=== PATIENT | male | born 1960 | race Caucasian/White ===

== ENCOUNTER 2020-02-12 11:36 | Outpatient (CLI) | payer BC, SELFPAY ==
--- NOTE | ~2020-02-12 | XR_ITS ---
XR shoulder LT min 2V DATE: 02/12/2020 11:55 INDICATION: Left shoulder pain TECHNIQUE: 4 views COMPARISON: None FINDINGS: There is severe osteoarthritis at the left glenohumeral joint, with associated prominent hy pertrophic degenerative spurring of the left humeral head. There is degenerative spurring at the acro mioclavicular joint. No fracture, dislocation, periosteal reaction or bone destruction is detected. IMPRESSION: Severe osteoarthritis at the left glenohumeral joint Degenerative spurring of the left acromioclavicular joint Reviewed, dictated and finalized at location B. ENGINEER
== END 2020-02-12 11:37 | disposition home or self-care (01) ==
PROVIDERS: PCP Internal Medicine; Visit Provider Nurse Practitioner
DX: M19.012 Primary osteoarthritis, left shoulder (principal)
CPT/HCPCS: 73030

== ENCOUNTER 2020-03-21 14:12 | Outpatient (CLI) | payer BC, SELFPAY ==
--- NOTE | 2020-03-21 | ECG_ITS ---
Measurements Intervals [place] Rate: 70 P: 56 ND: 178 QRS: 61 QRSD: 97 T: 59 QT: 416 QTc: 451 Interpretive Statements SINUS RHYTHM BASELINE ARTIFACT- V2 NORMAL ECG Electronically Signed On 03-21-2020 15:05:24 PROFILING MACHINE SETUP OPERATOR by Jose L Pinto D.O.
[2020-03-21 14:57] LABS: Hematocrit 42.8 % (42.0-52.0); Hemoglobin 14.7 g/dL (14.0-18.0)
[2020-03-21 15:03] LABS: Urine Cotinine NEGATIVE
[2020-03-21 15:06] LABS: Albumin Level 4.2 g/dL (3.5-5.1); Estimated Glomerular Filt Rate > 60; Glucose 98 mg/dL (75-110)
[2020-03-21 16:50] LABS: Hemoglobin A1C 5.1 % (<5.7)
== END 2020-03-21 14:13 | disposition home or self-care (01) ==
PROVIDERS: PCP Internal Medicine; Visit Provider Orthopaedic Surgery
DX: Z01.818 Encounter for other preprocedural examination (principal); E11.9 Type 2 diabetes mellitus without complications
CPT/HCPCS: 80307; 82040; 82565; 82947; 83036; 85014; 85018; 93005

== ENCOUNTER 2020-04-22 07:44 | Outpatient (CLI) | payer BC, SELFPAY ==
[2020-04-22 08:57] LABS: Basophils Percent Auto 0.6 % (0.2-1.2); Eosinophils Absolute Auto 0.1 K/mm3 (0-0.3); Eosinophils Percent Auto 2.3 % (0-4.4); Hematocrit 44.4 % (42.0-52.0); Hemoglobin 14.8 g/dL (14.0-18.0); Immature Granulocyte Absolute 0.01 K/mm3 (0.00-0.031); Immature Granulocyte Percent A 0.2 % (0-0.5); Lymphocytes Absolute Auto 1.46 K/mm3 (0.9-3.2); Lymphocytes Percent Auto 31.1 % (18.3-44.2); Mean Corpuscular HGB Conc 33.3 g/dl (32-36); Mean Corpuscular Hemoglobin 30.6 pg (26-34); Mean Corpuscular Volume 91.9 fl (80-100); Mean Platelet Volume 8.8 fl (7.4-10.4); Monocytes Absolute Auto 0.4 K/mm3 (0.1-0.6); Monocytes Percent Auto 7.7 % (2.6-8.5); Neutrophils Absolute Auto 2.7 K/mm3 (1.3-6.7); Neutrophils Percent Auto 58.1 % (45.5-73.1); Platelet Count Result 257 k/mm3 (150-375); Red Blood Count 4.83 M/mm3 (4.6-6.20); Red Cell Distribution Width 12.7 % (11.5-14.5); White Blood Count 4.7 K/mm3 (4.5-10.0)
== END 2020-04-22 07:45 | disposition home or self-care (01) ==
LOC: ANHSURGERY 07:48
PROVIDERS: PCP Internal Medicine; Visit Provider Orthopaedic Surgery
DX: M16.12 Unilateral primary osteoarthritis, left hip (principal); Z01.818 Encounter for other preprocedural examination
CPT/HCPCS: 36415; 85025; 87081

== ENCOUNTER → 2020-05-09 02:42 | Outpatient (CLI) | payer BC, SELFPAY ==
[2020-05-09 21:05] LABS: SARS-CoV-2 RNA PCR Negative
== END ==
PROVIDERS: PCP Internal Medicine; Visit Provider Orthopaedic Surgery
DX: Z01.812 Encounter for preprocedural laboratory examination (principal); Z20.822 Contact with and (suspected) exposure to COVID-19
CPT/HCPCS: C9803; U0003; U0005

== ENCOUNTER 2020-05-12 00:28 | Day surgery (SDC) | payer BC, SELFPAY ==
[2020-04-22 07:54] VITALS: BMI 28.9
[2020-04-22 08:32] VITALS: BP 134/86; PULSE 68; RESP 16; TEMP 36.3; O2SAT 100
--- NOTE | 2020-05-11 09:53 | WPDANESEPPF ---
Anes - Initial Pre Proc Eval Procedure: Operation Date: 05/12/20 07:30 Proposed Procedures p Left Total Hip Arthroplasty - Shiraz England MD Date/Time: 05/11/20 09:53 Surgeon: Shiraz England MD Pre Op Diagnosis: Primary OA Left Hip Patient Data Age: 59 Gender: M Height: 1.91 m Weight: 104.9 kg Last Vital Signs Temp 36.3 C L 04/22/20 08:32 Pulse 68 04/22/20 08:32 Resp 16 04/22/20 08:32 BP 134/86 04/22/20 08:32 Pulse Ox 100 04/22/20 08:32 Allergies Allergy/AdvReac Type Severity Reaction Status Date / Time morphine Allergy Unknown Nausea Verified 04/22/20 08:01 Home Medications Medication Instructions Recorded Confirmed Type glucos sul [id number]-Mn 1 cap PO TID 04/22/20 04/22/20 History [Glucosamine Chondroitin] meloxicam 15 mg PO PRN PRN 04/22/20 04/22/20 History Patient hx anesthesia problems: none Family hx anesthesia problems: none PMFSH Past Medical History Medical History (Updated 05/11/20 @ 09:54 by Luis Etienne MD) Chicken pox Dizziness Hip pain History of measles, mumps, or rubella Left shoulder pain Osteoarthritis Overweight (BMI 25.0-29.9) Pain of left thumb Tingling of both upper extremities Surgical History Surgical History H/O toe surgery 03/2017 History of knee surgery (~2004) patellar tendon rupture Hx of LASIK (~1999) Family History Family History Father Hypertension Osteoarthritis Mother Heart disease Hypertension FH: ovarian cancer FH: uterine cancer Cardiomegaly Sibling Cirrhosis of liver Perforation of colon Social History Social History Smoking status: Never smoker Additional smoking assessment comments: DENIES ANY FORM OF TOBACCO USE Alcohol intake: current Drinks per week: 6 Substance use: never Living arrangements: with family Spiritual care concerns: No Anes - Eval Final PreProcedure Day of Procedure 05/11/20 09:53 Patient weight: overweight Heart: regular rate and rhythm Lungs: clear to auscultation and normal air movement Airway: Mallampati scale class II Neurological: alert and oriented Last oral intake: >/= 8 hours ASA classification: II Emergent: no Anesthetic plan: proceed Anesthesia type and monitoring: general LMA and ETT Informed Consent: The patient's anesthetic plan and its attendant risks and benefits were discussed with the patient/family/POA. Questions were solicited and answers provided to the satisfaction of the patient/family/POA.
[2020-05-12] VITALS (13 sets, daily range): BP systolic 110–137; BP diastolic 45–83; PULSE 72–103; RESP 10–20; TEMP 36.1–37.6; O2SAT 96–100
--- NOTE | ~2020-05-12 | XR_ITS ---
EXAMINATION: XR hip LT min 2V EXAM DATE: 05/12/2020 10:50 INDICATION: Left hip arthroplasty. TECHNIQUE: Portable frontal, crosstable lateral projections left hip obtained immediately following arthroplasty. Procedure performed by Shiraz England MD. FINDINGS: Patient is status post left hip arthroplasty. The orthopedic hardware is in expected posi tion. There is small amount of subcutaneous gas, some soft tissue swelling. Correlate with proced ure note. IMPRESSION: Status post left hip arthroplasty. Reviewed, dictated and finalized at location A.
[2020-05-12] MEDS: ACETAMINOPHEN 500 MG TABLET 1000 MG PO (07:01)
[2020-05-12] MEDS: LACTATED RINGERS 1,000 ML 30 ML IV CONT ×2 (07:05→10:31)
[2020-05-12] MEDS: TRANEXAMIC ACID 1,000MG/ISO100 1,000 MG/100 ML BAG 200 MG IVPB (07:18)
--- NOTE | 2020-05-12 07:23 | WPDHPUPDATE1 ---
History and Physical Update Update Date/Time: 05/12/20 07:23 History and Physical has been reviewed, including an updated exam of the patient. There are NO changes in the patient's condition. Risks, benefits, and alternatives have been discussed and questions answered. Patient agrees to proceed with procedure.
[2020-05-12] MEDS: ceFAZolin 2 GM/D5W 50 ML 2 GM/50 ML BAG IVPB (07:29)
--- NOTE | 2020-05-12 10:51 | PM.PROC ---
Procedure Note - Detailed Date of procedure: 05/12/20 Pre-op diagnosis: Primary OA Left Hip Post-op diagnosis: same Procedure performed: Total hip arthroplasty. Implants: The Accolade II hip stem, 127 degree size 7 , was utilized with excellent press-fit. The 54 mm ADM acetabular component was impacted with excellent press-fit stability. The -2.7 , 28 mm Biolox ceramic femoral head was utilized. [facility] Surgeon: Shiraz England MD Lining Finisher: Desi Salgado PA-C Estimated blood loss (mL): 200 Drains: No Complications: None Condition: stable Findings: Physician optical assistant, Desi Salgado PA-C, required for surgery; including patient positioning, draping, tissue retraction, maintaining instrument position, wound closure, and dressing placement. OPERATIVE DETAILS: The patient was given preoperative antibiotics. A general anesthetic was administered. The patient was carefully placed in the lateral decubitus position on the PEG board. The shoulders and hips were carefully positioned for component and leg length positioning reference. The hip was prepped and draped in the usual sterile fashion. A longitudinal incision was created over the posterior aspect of the greater trochanter. Careful dissection was brought down through the deep fascia with electrocautery. A minimally invasive optimized posterior approach to the hip was performed. The short external rotators and capsule were taken down in an L-shaped capsulotomy. The tissue was tagged for later repair using number 2 high strength suture. The femoral neck was measured and taken in situ. The femoral head was removed. The acetabulum was carefully exposed. The inferior capsule was released. The labrum was resected. The acetabulum was sequentially reamed to one over the intended cup size. The cup was impacted into position with excellent press-fit. Typical anatomic landmarks, including the bony contact points as well as the inferior transverse acetabular ligament were used to confirm cup positioning with preoperative templating. Attention was turned to the femur, which was carefully exposed. The hip was reamed and then broached sequentially. Excellent press-fit was obtained with the broach. The hip was trialed. Measurements were utilized, including the lesser trochanter as well as the center of the femoral head and the tip of the trochanter, and excellent assessment of the offset and leg lengths were confirmed. The real component was impacted into position. Trialing confirmed appropriate leg length and offset with soft tissue balancing as well apparent feel of the leg, both at the knee and the heel. Soft tissues were assessed using the the iliotibial band. Reduction of the posterior capsule and external rotators were also used as a secondary assessment. The hip was copiously irrigated with pulsatile lavage antibiotic solution periodically throughout the procedure. The real components were then assembled and reduced. The hip was stable throughout typical maneuvers, including extension, external rotation to 70 degrees, the position of sleep as well as flexion to 90 degrees with internal rotation past 45 degrees. The shake test confirmed stability without impingement. Osteophytes were removed as necessary. The short external rotators and capsule were repaired back to the posterior trochanter through drill holes. The deep fascia was repaired with running number 2 Quill suture, followed by 0 Stratafix suture and 2-0 Stratafix suture in the dermis. Steri-Strips were placed on the skin, followed by a sterile silver occlusive dressing. There were no complications. Meticulous hemostasis was maintained with the AquaMantys device. The patient was brought to the recovery room in stable condition. There were no complications.
[2020-05-12] MEDS: fentaNYL CITRATE INJ (*CRX) 100 MCG/2 ML VIAL 25 MCG IV PUSH ×2 (11:05→11:09)
--- NOTE | 2020-05-12 11:44 | ADMGEN ---
This patient, Albert Bradford, was admitted to Medical Room 248-. Patient/family oriented to hospital policies and general routines including ID bracelet, bed and alarms, visiting hours, pain management, procedures, bathroom and other care routines, personal items, smoking policy, room service/diet, and visiting hours. Information on how to activate the Rapid Response Team has been discussed. Patient/Family are encouraged to report perceived risks to care and to ask questions if they do not understand what they are told or what they should do.
[2020-05-12] MEDS: SODIUM CHLORIDE 0.9% IV 1,000 ML 125 ML IV CONT ×2 (11:57→21:40)
[2020-05-12] MEDS: oxyCODONE HCL (*CRX) 5 MG TAB IR PO (12:49)
[2020-05-12] MEDS: ONDANSETRON INJ 4 MG/2 ML VIAL IV PUSH ×2 (12:49→16:52)
--- NOTE | 2020-05-12 14:26 | PCOTNOTE ---
Attempted OT evaluation, patient reports feeling nauseous at this time and would like to rest. will follow and attempt in AM. RN notified.
[2020-05-12] MEDS: MELOXICAM 7.5 MG TABLET 15 MG PO (14:27)
[2020-05-12] MEDS: ASPIRIN 81 MG ENTERIC TABLET PO (18:40)
[2020-05-12] MEDS: DOCUSATE SODIUM 100 MG CAPSULE PO (18:40)
--- NOTE | 2020-05-12 23:12 | PC.NURSE ---
Addendum entered by Michael Cochran RN 05/13/20 05:21: 4x4 gauze had small amount of saturation overnight, when rechecking at this time saturation had doubled. Gauze removed, surgical glue/steristrips still appear to be intact. Incision not actively bleeding/oozing at this time, coverlet applied. Original Note: Pt found to have blood saturated mepilex that had also saturated through pt gown as well as on bed. Mepilex was removed and incision was not actively bleeding or oozing, no bruising/hematoma noted. Blood was gently blotted at incision until dry and 4x4 gauze taped over incision. Will monitor closely for further signs of bleeding and notify surgeon if bleeding continues.
[2020-05-13] VITALS (7 sets, daily range): BP systolic 111–127; BP diastolic 57–81; PULSE 62–90; RESP 14–16; TEMP 35.7–37.7; O2SAT 94–100
[2020-05-13] MEDS: oxyCODONE HCL (*CRX) 5 MG TAB IR PO ×2 (07:11→11:15)
[2020-05-13] MEDS: MELOXICAM 7.5 MG TABLET 15 MG PO (08:47)
[2020-05-13] MEDS: DOCUSATE SODIUM 100 MG CAPSULE PO (08:47)
[2020-05-13] MEDS: ASPIRIN 81 MG ENTERIC TABLET PO (08:47)
--- NOTE | 2020-05-13 09:46 | WPDANESPN ---
Anes - Prog Note Post-Op Date/Time: 05/13/20 09:46 Cardiovascular status: normal Respiratory status: normal Airway patency: baseline Mental status: baseline Post-Op hydration status: normal Vital Signs: Last Vital Signs Temp 36.4 C L 05/13/20 08:07 Pulse 62 05/13/20 08:07 Resp 14 05/13/20 08:07 BP 111/76 05/13/20 08:07 Pulse Ox 99 05/13/20 08:18 Pain Score (VAS): 5 I/O: Intake & Output 05/12/20 05/13/20 05/13/20 23:59 07:59 15:59 Intake Total 2090 1400 Output Total 3075 Balance 2090 -1675 Post-procedural complaints: none Patient Feedback: Patient satisfied with anesthetic care.
--- NOTE | 2020-05-13 14:32 | P.DS_ITS ---
DS: Admitting Diagnosis Admitting Diagnosis Admitting Diagnosis: OA Left hip DS: Discharge Diagnosis Discharge Diagnosis (1) Status post total hip replacement, left: Code(s): Z96.642 - Presence of left artificial hip joint Status: Acute Assessment and Plan: POD#1 Left Total hip arthroplasty. Patient progressing well. Ambulating with walker. Pain controlled. Has had initial PT/OT. Reviewed post operative expectations and exercises. Reviewed wound care postoperatively. Patient shows good understanding. Patient did have some bloody discharge from incision last night that saturated through the dressing. Dressing changed at 5 am. Only small increase in blood since. Dressing removed, cleaned with Betadine, steri strips reapplied, dressing reapplied. No drainage at the time of discharge. DS: Summary Hospital Course Reason for hospitalization: Total hip arthroplasty Hospital Course: Patient tolerated procedure well. Has had initial PT/OT. Patient did have bleeding from incision site. Dressing removed, cleaned with Betadine, steri strips reapplied, dressing reapplied. No drainage at the time of discharge. Status at Discharge Functional status at discharge: uses cane/walker Overall status at discharge: patient is progressing back to baseline Time Spent with Patient Time attestation: Total time spent providing and/or coordinating discharge services: Exam Narrative: Exam Narrative: Thin, tall Male. Resting comfortably in chair. Wearing compression socks bilaterally. Dressing dry and intact with no drainage. Moderate swelling. No ecchymosis. No erythema. No hematoma. Range of motion limited due to pain. Calf nontender. Thigh nontender. Neurologic status intact. No varicosities. Distal pulses palpable. Discharge Plan Discharge Patient Disposition: Home, Self-Care Discharge Instructions: See instruction sheet Patient Instructions: Precautions after Total Joint Replacement Surgery (GEN), Total Hip Replacement (GEN) Follow-up/Referrals: Desi Salgado PA [Physician Skilled Nursing Facility Counselor] - Discharge Medications: New aspirin 81 mg tablet,delayed release (DR/EC) 81 mg PO BID 14 Days Qty: 28 RF: 0 oxycodone-acetaminophen 5-325 mg tablet 1 - 2 tablet PO Q4-6H MDD 6 PRN (Reason: pain) Qty: 30 RF: 0 Continued meloxicam 15 mg tablet 15 mg PO DAILY RF: 0 Glucosamine Chondroitin 550-30-1 mg Capsule 1 cap PO TID RF: 0
--- NOTE | 2020-05-13 15:12 | PC.NURSE ---
On 05/13/20, the student, [ Missy Montesinos], provided care and completed [facility] documentation on this patient. I have reviewed the student's documentation and agree with the findings.
== END 2020-05-13 15:46 | disposition home or self-care (01) ==
LOC: ANHSURGERY 06:06 → ANH2MED 11:38
PROVIDERS: PCP Internal Medicine; Visit Provider Orthopaedic Surgery
PROC: (CPT 27130; principal; 2020-05-12 07:30)
DX: M16.12 Unilateral primary osteoarthritis, left hip (principal)
CPT/HCPCS: 27130; 36415; 73502; 86850; 86900; 86901; 97110; 97116; 97161; 97165; 97530; A9270; C1776; J0131; J0171; J0330; J0690; J1100; J1170; J1885; J2250; J2405; J2704; J2710; J2795; J3010; J7030; J7120

== ENCOUNTER 2020-10-05 07:20 | Outpatient (CLI) | payer BC, SELFPAY ==
--- NOTE | ~2020-10-05 | CT_ITS ---
EXAMINATION: CT shoulder LT wo con DATE: 10/05/2020 08:12 INDICATION: Left shoulder primary osteoarthritis. TECHNIQUE: Computed tomography (CT) of the left shoulder was performed without intravenous contrast. Automated exposure control and iterative reconstruction technique were employed. The dose-length prod uct was 531.71 mGy-cm. COMPARISON: Left shoulder radiographs 09/26/2020 FINDINGS: Bone alignment is normal. No fracture. There is severe osteoarthritis of glenohumeral joint including volume loss of the glenoid. There is severe osteoarthritis of the acromioclavicular joint. There is no asymmetric fatty atrophy of the rotator cuff muscle bellies. IMPRESSION: 1. Polyarticular osteoarthritis. Reviewed, dictated and finalized at location A.
== END 2020-10-05 07:21 | disposition home or self-care (01) ==
PROVIDERS: PCP Internal Medicine; Visit Provider Orthopaedic Surgery
DX: M19.012 Primary osteoarthritis, left shoulder (principal)
CPT/HCPCS: 73200

== ENCOUNTER 2020-12-01 11:52 | Outpatient (CLI) | payer BC, SELFPAY ==
[2020-12-01 13:03] LABS: Basophils Percent Auto 0.5 % (0.2-1.2); Eosinophils Absolute Auto 0.1 K/mm3 (0-0.3); Eosinophils Percent Auto 2.2 % (0-4.4); Hematocrit 45.2 % (42.0-52.0); Hemoglobin 14.8 g/dL (14.0-18.0); Immature Granulocyte Absolute 0.01 K/mm3 (0.00-0.031); Immature Granulocyte Percent A 0.2 % (0-0.5); Lymphocytes Absolute Auto 1.82 K/mm3 (0.9-3.2); Lymphocytes Percent Auto 30.5 % (18.3-44.2); Mean Corpuscular HGB Conc 32.7 g/dl (32-36); Mean Corpuscular Hemoglobin 31.2 pg (26-34); Mean Corpuscular Volume 95.4 fl (80-100); Mean Platelet Volume 9.4 fl (7.4-10.4); Monocytes Absolute Auto 0.4 K/mm3 (0.1-0.6); Monocytes Percent Auto 7.2 % (2.6-8.5); Neutrophils Absolute Auto 3.5 K/mm3 (1.3-6.7); Neutrophils Percent Auto 59.4 % (45.5-73.1); Platelet Count Result 249 k/mm3 (150-375); Red Blood Count 4.74 M/mm3 (4.6-6.20); Red Cell Distribution Width 12.9 % (11.5-14.5)
== END 2020-12-01 11:53 | disposition home or self-care (01) ==
PROVIDERS: PCP Internal Medicine; Visit Provider Orthopaedic Surgery
DX: M19.012 Primary osteoarthritis, left shoulder (principal); Z01.818 Encounter for other preprocedural examination
CPT/HCPCS: 36415; 85025; 87081

== ENCOUNTER 2020-12-22 00:10 | Day surgery (SDC) | payer BC, SELFPAY ==
[2020-12-01 12:12] VITALS: BP 144/76; PULSE 70; RESP 20; TEMP 36.8; O2SAT 97; BMI 31.0
--- NOTE | 2020-12-21 10:55 | P.PNAN_ITS ---
Anes - Initial Pre Proc Eval Procedure: Operation Date: 12/22/20 07:30 Proposed Procedures p Left Anatomic Total Shoulder Arthroplasty - Shiraz England MD Date/Time: 12/21/20 10:55 Surgeon: Shiraz Egnland MD Pre Op Diagnosis: primary OA left shoulder Patient Data Age: 60 Gender: M Height: 1.91 m Weight: 112.7 kg Last Vital Signs Temp 36.8 C 12/01/20 12:12 Pulse 70 12/01/20 12:12 Resp 20 12/01/20 12:12 BP 144/76 H 12/01/20 12:12 Pulse Ox 97 12/01/20 12:12 Allergies Allergy/AdvReac Type Severity Reaction Status Date / Time morphine AdvReac Mild Nausea Verified 12/01/20 12:08 Home Medications Medication Instructions Recorded Confirmed Type meloxicam 15 mg PO DAILY PRN 12/01/20 12/22/20 History Patient hx anesthesia problems: none Family hx anesthesia problems: none Results Review: All pre-operative results and documents have been reviewed as part of the pre-operative evaluation. [facility] Past Medical History Medical History Chicken pox Dizziness Hip pain History of measles, mumps, or rubella Left shoulder pain Osteoarthritis Overweight (BMI 25.0-29.9) Pain of left thumb Tingling of both upper extremities Surgical History Surgical History H/O toe surgery 03/2017 History of hip replacement History of knee surgery (~2004) patellar tendon rupture Hx of LASIK (~1999) Family History Family History Father Hypertension Osteoarthritis Mother Heart disease Hypertension FH: ovarian cancer FH: uterine cancer Cardiomegaly Sibling Cirrhosis of liver Perforation of colon Social History Social History Smoking status: Never smoker Second hand tobacco smoke exposure: No Additional smoking assessment comments: DENIES ANY FORM OF TOBACCO USE Alcohol intake: current Drinks per week: 6 Substance use: never Substance use type: does not use Living arrangements: with family Spiritual care concerns: No Anes - Eval Final PreProcedure Day of Procedure 12/21/20 10:55 Patient weight: obese Heart: regular rate and rhythm Lungs: clear to auscultation and normal air movement Airway: Mallampati scale class II Neurological: alert and oriented Last oral intake: >/= 8 hours ASA classification: II Emergent: no Anesthetic plan: proceed Anesthesia type and monitoring: general ETT and standard monitoring Results Review: All pre-operative results and documents have been reviewed as part of the pre-operative evaluation. Informed Consent: The patient's anesthetic plan and its attendant risks and benefits were discussed with the patient/family/POA. Questions were solicited and answers provided to the satisfaction of the patient/family/POA.
--- NOTE | 2020-12-21 10:55 | WPDANESPNB ---
Anes - Peripheral Nerve Block Date/Time: 12/21/20 10:55 I have discussed with the patient/family/POA the placement of a peripheral nerve block for post-operative pain management, including associated risks, benefits, complications, and side effects. Alternative methods of post-operative analgesia were detailed. Questions were solicited and answers provided to the satisfaction of the patient/family/POA. Time-Out: A pre-procedural Time-Out was completed immediately before starting the procedure and confirmed: Patient Identification, Site, Procedure, Patient Position and the Availability of Requisite Equipment. Clinical Indications: Acute post-operative pain management requested by the operative surgeon. Nerve Block Insertion Note Anes-nerve block: interscalene left Patient position: supine Skin prep: chlorhexidine Needle: 22 gauge, stimulating, insulated echogenic needle. Needle length: 50 mm Technique: ultrasound Injectate: bupivacaine 0.5% with epi 5 mcg/ml (30cc- no epi) Observations: tolerated well Complications: none Procedure start time:: 706 Procedure end time:: 709
[2020-12-22] VITALS (15 sets, daily range): BP systolic 104–142; BP diastolic 59–86; PULSE 66–87; RESP 10–20; TEMP 36.1–36.5; O2SAT 93–100
--- NOTE | ~2020-12-22 | XR_ITS ---
EXAMINATION: XR shoulder LT min 2V DATE: 12/22/2020 11:42 INDICATION: Left shoulder arthroplasty. Postop. TECHNIQUE: 2 views of left shoulder were obtained. COMPARISON: Left shoulder radiographs 09/26/2020 FINDINGS: There is a total left shoulder arthroplasty in near-anatomic alignment. No fracture. There is severe acromioclavicular joint osteoarthritis. There is gas in the soft tissues, consistent with r ecent surgery. There are airspace opacities at left lung base. IMPRESSION: 1. Total left shoulder arthroplasty in near-anatomic alignment. 2. Severe acromioclavicular joint osteoarthritis. 3. Airspace opacities at left lung base, consistent with atelectasis versus pneumonia. Reviewed, dictated and finalized at location A. IMPRESSION: 1. Total left shoulder arthroplasty in near-anatomic alignment. 2. Severe acromioclavicular joint osteoarthritis. 3. Airspace opacities at left lung base, consistent with atelectasis versus pne umonia.
[2020-12-22] MEDS: ACETAMINOPHEN 500 MG TABLET 1000 MG PO ×3 (06:40→23:40)
[2020-12-22] MEDS: LACTATED RINGERS 1,000 ML 30 ML IV CONT ×2 (06:50→11:30)
[2020-12-22] MEDS: TRANEXAMIC ACID 1,000MG/ISO100 1,000 MG/100 ML BAG 200 MG IVPB (06:56)
--- NOTE | 2020-12-22 07:10 | WPDHPUPDATE1 ---
History and Physical Update Update Date/Time: 12/22/20 07:10 History and Physical has been reviewed, including an updated exam of the patient. There are NO changes in the patient's condition. Risks, benefits, and alternatives have been discussed and questions answered. Patient agrees to proceed with procedure.
--- NOTE | 2020-12-22 07:18 | SUR.PREOP ---
0630-LEFT ANTERIOR UPPER ARM NODULE NOTED, STATES HAS BEEN THERE A LONG TIME AND GETS BIGGER IN THE SUMMER AND SMALLER IN THE WINTER. I HAD IT CHECKED OUT AND THEY SAID NOT TO WORRY ABOUT IT. 0682-DR. MAGALLON AWARE OF ABOVE.
[2020-12-22] MEDS: ceFAZolin 2 GM/D5W 50 ML 2 GM/50 ML BAG IVPB ×3 (07:35→23:43)
--- NOTE | 2020-12-22 08:57 | SUR.OPER ---
Cultures handed off to [place] @ 0867 Called @ 0855 to verify correct tube collection for both Stat Gram Stain and Aerobic/Anerobic cultures. Verified they have what they need. Awaiting Stat Gram stain Report
[2020-12-22] MEDS: VANCOMYCIN HCL 1,000 MG VIAL 1000 MG TOPICAL (09:10)
--- NOTE | 2020-12-22 09:29 | SUR.OPER ---
Attempted to call lab for update on Stat Gram stain Status, no answer- [id number]
--- NOTE | 2020-12-22 09:34 | SUR.OPER ---
Report from Kate in Lab @ 5141 Gram stain- Gram (+) Cocci and Few White Blood Cells
[2020-12-22] MEDS: ceFAZolin SODIUM 1 GM VIAL 2 GM IV PUSH (11:16)
--- NOTE | 2020-12-22 12:11 | SUR.PHASEI ---
Simple mask removed at 1209.
--- NOTE | 2020-12-22 13:10 | ADMGEN ---
This patient, Albert Bradford, was admitted to Medical Room 247-. Patient/family oriented to hospital policies and general routines including ID bracelet, bed and alarms, visiting hours, pain management, procedures, bathroom and other care routines, personal items, smoking policy, room service/diet, and visiting hours. Information on how to activate the Rapid Response Team has been discussed. Patient/Family are encouraged to report perceived risks to care and to ask questions if they do not understand what they are told or what they should do.
[2020-12-22] MEDS: ASPIRIN 81 MG ENTERIC TABLET PO (16:32)
[2020-12-22] MEDS: DOCUSATE SODIUM 100 MG CAPSULE PO (16:32)
--- NOTE | 2020-12-22 16:34 | W.PM.PROC2 ---
Procedure Note - Detailed Date of Procedure 12/22/20 Pre-op Diagnosis Primary OA left shoulder Post-op Diagnosis other (1. Primary OA left shoulder 2. Infected subcutaneus cyst left shoulder) Procedure Performed Left anatomic total shoulder arthroplasty. Surgeon Shiraz England MD [employer] Desi Weller PA-C Anesthesia general and regional Findings Subcutaneous 2 cm cyst in the distal third of the incision line. Gram stain positive. Positive for Gram-positive cocci. White blood cells. Debridement of the cyst combined with copious irrigation. [place] peroxide wash. 1 g of vancomycin powder placed throughout the wound postoperatively. Severe arthritis. Intact rotator cuff. Good bone quality. Slight posterior wear corrected 5? with asymmetric reaming. Description of Procedure The patient was given an interscalene block in the preoperative area. Preoperative antibiotics were given. The patient was transferred to the operating room and a general anesthetic was administered. The beach chair position was used at 35 degrees. All bony prominences were padded. The head was carefully stabilized on the Bustillo head porter baggage. A sterile prep and drape was performed in the usual manner with Chloraprep. A longitudinal incision was created at the anterior shoulder just lateral to the deltopectoral interval. Careful dissection was performed to expose the interval and protect the cephalic vein. The vein was retracted medially. The upper border of the pectoralis was released. Anterior circumflex vessel branches were suture ligated. The biceps was tenodesed. A small lesser tuberosity osteotomy was performed after opening the joint capsule at the rotator interval. The inferior capsule was released, exposing the humeral head. Osteophytes were removed. Care was taken to stay on bone to protect the axillary nerve. A Fukuda was placed in the joint. The subscapularis was mobilized, the inferior capsule and long head of triceps released, and the superior and middle glenohumeral ligaments released as well. Attention was turned to the humerus again. The anatomic head cut was taken with the oscillating saw. Sounding and broaching was performed. The neck anteversion and inclination were carefully assessed. Head sizing and offset were determined. The cut protector was placed, and attention was turned to the glenoid. Retractors were placed. Releases were carried out for exposure. Labral tissue was resected. The sizing template was used and a guide pin was placed. 5? of deformity correction was performed. The reamer was placed over the guide pin taken down to create a 2-3 millimeter minimal wall. The peg drill guide was applied and the pegs drilled. The trial component was placed and fit very nicely. Excellent stability was confirmed. The real component was cemented into position. Excess cement was carefully removed. The humerus was prepared for subscapularis repair with the drilling and passage of 3 suture leaders. The real humeral stem and head were impacted into position. The shoulder was copiously irrigated periodically with pulsatile lavage. The shoulder was reduced and the subscapularis repaired with number 5 Ethibond suture modified Brandon-Jhonny sutures, and reinforced with multiple number 2 Ethibond suture. The rotator interval was reapproximated laterally. The biceps tenodesis was incorporated with the pectoralis tendon repair using 5. Ethibond suture. The deltopectoral space was reapproximated with 2-0 Vicryl. The remaining tissue was closed with 0 Quill and 2-0 Quill running suture and steri-strips. A sterile dressing and shoulder immobilizer was placed. The patient was transferred to the recovery room. Physician financial administrative assistant, Desi Weller PA-C, required for surgery; including patient positioning, draping, tissue retraction, maintaining instrument position, cement removal, wound closure, and dressing placement. Implants Shoulder Innovations Inset Shoulder S
[2020-12-22] MEDS: FAMOTIDINE 20 MG TABLET PO (22:24)
[2020-12-22] MEDS: oxyCODONE HCL (*CRX) 5 MG TAB IR PO (22:26)
[2020-12-22] MEDS: CYCLOBENZAPRINE HCL 10 MG TABLET PO (22:27)
[2020-12-23 02:42] VITALS: BP 118/61; PULSE 73; RESP 16; TEMP 36.6; O2SAT 97
[2020-12-23 05:40] VITALS: BP 106/60; PULSE 66; RESP 16; TEMP 36.6; O2SAT 96
[2020-12-23] MEDS: ACETAMINOPHEN 500 MG TABLET 1000 MG PO ×2 (07:08→13:08)
[2020-12-23 08:00] VITALS: BP 102/62; BP 97/85; PULSE 74; RESP 18; TEMP 36.4; O2SAT 100
[2020-12-23] MEDS: ceFAZolin 2 GM/D5W 50 ML 2 GM/50 ML BAG IVPB (09:01)
[2020-12-23] MEDS: ASPIRIN 81 MG ENTERIC TABLET PO (09:02)
[2020-12-23] MEDS: DOCUSATE SODIUM 100 MG CAPSULE PO (09:02)
[2020-12-23] MEDS: FAMOTIDINE 20 MG TABLET PO (09:02)
[2020-12-23] MEDS: MELOXICAM 7.5 MG TABLET 15 MG PO (09:02)
[2020-12-23 12:00] VITALS: BP 120/70; PULSE 63; RESP 16; TEMP 35.9; O2SAT 96
[2020-12-23] MEDS: oxyCODONE HCL (*CRX) 5 MG TAB IR PO (13:08)
--- NOTE | 2020-12-23 13:12 | WPDANESPN ---
Anes - Prog Note Post-Op Date/Time: 12/23/20 13:12 Cardiovascular status: normal Respiratory status: normal Airway patency: baseline Mental status: baseline Post-Op hydration status: normal Vital Signs: Last Vital Signs Temp 36.4 C L 12/23/20 08:00 Pulse 74 12/23/20 08:00 Resp 18 12/23/20 08:00 BP 102/62 12/23/20 08:00 Pulse Ox 100 12/23/20 08:00 Pain Score (VAS): 1 I/O: Intake & Output 12/22/20 12/23/20 12/23/20 23:59 07:59 15:59 Intake Total 50 550 240 Output Total 350 Balance -300 550 240 Microbiology 12/22/20 08:35 Shoulder Left Gram Stain - Final Post-procedural complaints: none Patient Feedback: Patient satisfied with anesthetic care.
--- NOTE | 2020-12-23 13:48 | WPDINFPN2 ---
Progress Note: A&P Assessment and Plan (1) Infected cyst of skin: Code(s): L72.9 - Follicular cyst of the skin and subcutaneous tissue, unspecified; L08.9 - Local infection of the skin and subcutaneous tissue, unspecified Status: Acute Assessment and Plan: Infected subdermal cyst, Propionibacterium vs other skin bienvenido REC Ampicillin x 14 days , ok home Subjective Date/time seen: 12/23/20 13:48 Objective Data Vital Signs Vital Signs: Vital Signs - 24 hr 12/22/20 14:00 12/22/20 14:42 12/22/20 18:42 Temperature 36.3 C L Pulse Rate 84 74 87 Respiratory Rate 18 16 16 Blood Pressure 121/67 120/68 104/66 Pulse Oximetry 93 94 97 12/22/20 20:19 12/22/20 22:42 12/23/20 02:42 Temperature 36.4 C 36.6 C Pulse Rate 72 66 73 Respiratory Rate 16 16 16 Blood Pressure 112/68 118/61 Pulse Oximetry 94 99 97 12/23/20 05:40 12/23/20 08:00 Temperature 36.6 C 36.4 C L Pulse Rate 66 74 Respiratory Rate 16 18 Blood Pressure 106/60 102/62 Pulse Oximetry 96 100 Intake/Output Intake/Output: Intake & Output 12/20/20 12/21/20 12/22/20 12/23/20 23:59 23:59 23:59 23:59 Intake Total 850 790 Output Total 350 Balance 500 790 Meds/Results Medications: Active Medications Generic Name Dose Route Start Last Admin Trade Name Freq PRN Reason Stop Dose Admin Acetaminophen 1,000 mg 12/22/20 18:00 12/23/20 13:08 Acetaminophen 500 Mg Tablet PO 1,000 mg Q6HR RAYMON Administration Aspirin 81 mg 12/22/20 17:00 12/23/20 09:02 Aspirin 81 Mg Enteric Tablet PO 81 mg BID RAYMON Administration Cyclobenzaprine HCl 10 mg 12/22/20 12:57 12/22/20 22:27 Cyclobenzaprine Hcl 10 Mg Tablet PO 10 mg Q8H PRN Administration Muscle Spasm Docusate Sodium 100 mg 12/22/20 17:00 12/23/20 09:02 Docusate Sodium 100 Mg Capsule PO 100 mg BID RAYMON Administration Famotidine 20 mg 12/22/20 21:00 12/23/20 09:02 Famotidine 20 Mg Tablet PO 20 mg Q12HR RAYMON Administration Magnesium Hydroxide 30 ml 12/22/20 12:57 Magnesium Hydroxide Susp 30 Ml Udc PO BID PRN Constipation Meloxicam 15 mg 12/22/20 13:02 12/23/20 09:02 Meloxicam 7.5 Mg Tablet PO 15 mg DAILY PRN Administration Pain Ondansetron HCl 4 mg 12/22/20 12:57 Ondansetron Inj 4 Mg/2 Ml Vial IV PUSH Q4H PRN Nausea And Vomiting Oxycodone HCl 10 mg 12/22/20 12:57 Oxycodone Hcl (*Crx) 5 Mg Tab Ir PO Q4H PRN Pain Rated 7-10 Oxycodone HCl 5 mg 12/22/20 12:57 12/23/20 13:08 Oxycodone Hcl (*Crx) 5 Mg Tab Ir PO 5 mg Q4H PRN Administration Pain Rated 4-6 Radiology Results: ITS Impressions Shoulder X-Ray 12/22/20 12:00 IMPRESSION: 1. Total left shoulder arthroplasty in near-anatomic alignment. 2. Severe acromioclavicular joint osteoarthritis. 3. Airspace opacities at left lung base, consistent with atelectasis versus pneumonia.
[2020-12-23] MEDS: AMPICILLIN TRIHYDRATE 500 MG CAPSULE PO (15:12)
[2020-12-23] MEDS: CYCLOBENZAPRINE HCL 10 MG TABLET PO (15:16)
--- NOTE | 2020-12-23 16:16 | P.DS_ITS ---
DS: Admitting Diagnosis Discharge Date 12/23/20 Admitting Diagnosis Left shoulder osteoarthritis. DS: Discharge Diagnosis Discharge Diagnosis (1) Osteoarthritis of left shoulder: Qualifiers: Osteoarthritis type: primary Qualified Code(s): M19.012 - Primary osteoarthritis, left shoulder Code(s): M19.012 - Primary osteoarthritis, left shoulder Status: Acute (2) Status post total replacement of left shoulder: Code(s): Z96.612 - Presence of left artificial shoulder joint Status: Acute DS: Summary Hospital Course Reason for hospitalization: Total shoulder arthroplasty. Hospital Course: Tolerated surgery well. Infected sebaceous cyst noted at the time of surgery. Dr. Miguel from .. consulted. Progressed appropriately with therapy. Status at Discharge Functional status at discharge: independent ambulation Overall status at discharge: patient is not back to baseline Time Spent with Patient Time attestation: Total time spent providing and/or coordinating discharge services: Exam Const: General: no acute distress Resp: Effort & Inspection: normal respiratory effort Skin: Other: Wound healing well. Mepilex dressing intact. No hematoma or drainage. Sling applied appropriately. Deltoid muscle fires. Axillary nerve sensation intact. Good delivery recruiter strength. No edema. radial pulse palpable. Neuro: Motor exam (neuro): 5/5 motor strength present throughout Sensory Exam: normal sensation Psych: Mental Status: mental status grossly normal Speech and movement: No rmal speech and movement present DS: Data Data Completed and Pending Completed studies during hospitalization: Gram stain gram positive cocci, and many WBC's. Labs on day of discharge: Preliminary micro results at discharge 12/22/20 08:48 Anaerobic Culture - Preliminary Shoulder Left Discharge Plan Discharge Patient Disposition: Home, Self-Care Discharge Instructions: See instruction sheet. Stand Alone Forms: General Discharge Instructions Follow-up/Referrals: Shiraz England MD [Physician] - Discharge Medications: New ampicillin 500 mg Capsule 500 mg PO Q8HR 14 Days Qty: 42 RF: 0 oxycodone-acetaminophen 5-325 mg tablet 1 - 2 tablet PO Q4-6H MDD 6 tablets PRN (Reason: pain) Qty: 30 RF: 0 Continued meloxicam 15 mg tablet 15 mg PO DAILY PRN (Reason: Pain) RF: 0
--- NOTE | 2020-12-23 16:35 | CONS_ITS ---
DATE OF CONSULTATION: 12/23/2020 REASON FOR CONSULTATION: Skin cyst. HISTORY OF THE PRESENT ILLNESS: 60-year-old male with degenerative arthritis of the left shoulder. He underwent shoulder replacement yesterday electively. Intraoperatively, a subdermal cyst was encountered and Gram stain was positive. He has been given perioperative Ancef. Consultation requested. In retrospect, the patient has noted about 2 to 3 years of a cyst in the same location. This is inferior to the humeral head, anterior aspect. It will sometimes become larger, particularly in the summer and smaller in winter. 2 or 3 times in the past it has become mildly inflamed and tender. Most recently, it did become tender once again about 1 week prior to admission with increased swelling. He has been on no recent antibiotics. No immunosuppressants. He has received no injections into the shoulder nor surrounding area now or in the past. ALLERGIES: MORPHINE. HABITS: No tobacco. No alcohol. PRESENT MEDICATIONS: See above. PAST MEDICAL HISTORY: Previous left knee surgery and toe surgery. He has osteoarthritis as well. FAMILY HISTORY: Osteoarthritis, hypertension, cancer, cirrhosis. SOCIAL HISTORY: He lives locally. REVIEW OF SYSTEMS: Skin, constitutional, musculoskeletal, respiratory, GI otherwise negative. PHYSICAL EXAMINATION: GENERAL: Middle-aged male, appears actual age. No distress. VITAL SIGNS: Afebrile. 102/62, 74, 18, 100% on room air. SKIN: Warm and dry. NODES: He has no cervical adenopathy. EENT: Conjunctivae are normal. Oropharynx, oral mucosa normal. NECK: No mass or thyromegaly. LUNGS: Clear to auscultation and percussion. CARDIAC: Regular rate and rhythm. No murmurs or gallops. ABDOMEN: Nontender, soft. No organomegaly. No masses. EXTREMITIES: Without edema. MUSCULOSKELETAL: Surgical dressing in place over the left anterior shoulder. I did not remove. There is no surrounding erythema, tenderness, or crepitus. LAB: Culture in process from the operative specimen. Gram stain showed few gram-positive cocci and rare white cells. White count consistently normal. Hemoglobin 14.8, platelets are 249, differential is normal. Chemistry panel not redone earlier was within normal limits. RADIOLOGY: Shoulder x-ray showed osteoarthritis changes and left lung opacity suggestive of atelectasis. ASSESSMENT: 1. Subdermal skin cyst. Infected acutely such as with skin bienvenido including propionibacterium, staphylococci, not Staph aureus, micrococcus or others. 2. Osteoarthritis. RECOMMENDATIONS: 1. Ampicillin appropriate for 14 days given his underlying surgical procedure. 2. Okay with me for discharge. 3. 4. Thank you very much for asking me to see him. EMILY TORREZ M.D. ROUND KILN DRAWER ROUND KILN DRAWER D I MT: Billy
== END 2020-12-23 17:03 | disposition home or self-care (01) ==
LOC: ANHSURGERY 06:04 → ANH2MED 12:59
PROVIDERS: PCP Internal Medicine; Visit Provider Orthopaedic Surgery
PROC: (CPT 23472; principal; 2020-12-22 07:30)
DX: M19.012 Primary osteoarthritis, left shoulder (principal); L72.9 Follicular cyst of the skin and subcutaneous tissue, unspecified; L08.9 Local infection of the skin and subcutaneous tissue, unspecified; B95.7 Other staphylococcus as the cause of diseases classified elsewhere; B96.89 Other specified bacterial agents as the cause of diseases classified elsewhere; G89.18 Other acute postprocedural pain; E66.9 Obesity, unspecified; Z68.31 Body mass index [BMI] 31.0-31.9, adult; Z96.642 Presence of left artificial hip joint
CPT/HCPCS: 64415; 23472; 36415; 73030; 86850; 86900; 86901; 87070; 87075; 87205; 97110; 97161; 97165; 97530; 97535; A4565; A9270; C1713; C1776; J0131; J0171; J0690; J1100; J1885; J2250; J2270; J2370; J2405; J2704; J2710; J2795; J3010; J3370; J7120

== ENCOUNTER 2021-12-28 13:03 | Outpatient (CLI) | payer OTHER, SELFPAY ==
--- NOTE | ~2021-12-28 | XR_ITS ---
EXAMINATION: XR hip LT min 2V DATE: 12/28/2021 13:20 INDICATION: Left hip arthroplasty. TECHNIQUE: Anteroposterior and frog-leg lateral views of the left hip were obtained. COMPARISON: 06/27/2020 FINDINGS: Bipolar type left hip hemiarthroplasty which remains well seated in near-anatomic alignment. No perip rosthetic lucency to suggest loosening or infection. No fracture. There is narrowing of the left hip joint spaces suggesting progressive chondromalacia at the left acetabulum. No erosions. Mild osteoart hritis at the left sacroiliac joint. Soft tissues are unremarkable. IMPRESSION: 1. Bipolar type left hip hemiarthroplasty with suggestion of progressive cartilage loss at the left a cetabulum. No acute osseous abnormality. Reviewed, dictated and finalized at location B. IMPRESSION: 1. Bipolar type left hip hemiarthroplasty with suggestion of progressive cartil age loss at the left acetabulum. No acute osseous abnormality.
--- NOTE | ~2021-12-28 | XR_ITS ---
EXAMINATION: XR shoulder LT min 2V DATE: 12/28/2021 13:20 INDICATION: Left shoulder arthroplasty TECHNIQUE: AP internally and externally rotated, AP oblique externally rotated and transscapular Y vi ews of the left shoulder were obtained. COMPARISON: Left shoulder radiographs dated 06/19/[address] dated FINDINGS: Again seen is a left total shoulder arthroplasty which remains in near-anatomic alignment. Unchanged subarticular cystic change along the inferior glenoid which was present prior to placement of the art hroplasty as seen on CT dated 10/05/2020. No new periprosthetic lucency to suggest loosening or infect ion. No fracture. Moderate acromioclavicular osteoarthritis. Soft tissues are unremarkable. Left lung is clear there is no pleural effusion or pneumothorax. IMPRESSION: Unchanged left total shoulder arthroplasty which remains in near-anatomic alignment. No acute osseous abnormality. 2. Moderate left acromioclavicular osteoarthritis. Reviewed, dictated and finalized at location B. IMPRESSION: Unchanged left total shoulder arthroplasty which remains in near-anatomic align ment. No acute osseous abnormality. 2. Moderate left acromioclavicular osteoarthritis.
== END 2021-12-28 13:04 | disposition home or self-care (01) ==
PROVIDERS: PCP Internal Medicine; Visit Provider Orthopaedic Surgery
DX: M19.012 Primary osteoarthritis, left shoulder (principal); Z96.612 Presence of left artificial shoulder joint; Z96.642 Presence of left artificial hip joint
CPT/HCPCS: 73030; 73502

== ENCOUNTER 2022-09-29 08:36 | Outpatient (CLI) | payer OTHER, SELFPAY ==
--- NOTE | ~2022-09-29 | MR_ITS ---
MRI of the right shoulder Technique: Axial proton-density fat-sat images, coronal proton density fat-sat and T2 fat-sat images, and sagittal T1-weighted and T2 fat-sat images were acquired. Clinical History: Pain Findings: There is moderate AC joint degenerative change with subacromial spur present and fluid in t he joint space. Coracoclavicular, coracoacromial, and coracohumeral ligaments are intact. There is moderate grade articular surface partial tearing involving the posterior portion of the supr aspinatus tendon and the anterior to central portions of the infraspinatus tendon at the distal inser tions. No full-thickness tear evident. Subscapularis tendon is intact with linear low-grade interstit ial tear likely present. There is moderate tendinosis. Tendon of long head of the biceps is intact. There is probable degenerative superior labral tear versus sublabral recess, with degenerative tearin g predominantly extending to the anterosuperior and posterior superior portions. Inferior glenohumeral ligament is intact. There is moderate to advanced degenerative change of the gl enohumeral joint, with joint space narrowing, chondromalacia, and osteophyte formation. There is no f luid distention of the subacromial/subdeltoid bursa. No muscle atrophy or edema identified. Impression: Moderate grade articular surface partial tearing involving the posterior portion of the distal supras pinatus tendon, and anterior to central portions of the distal infraspinatus tendon. Probable degenerative SLAP tear, as detailed above. Moderate to severe osteoarthritis of the glenohumeral joint. Moderate AC joint degenerative change. Reviewed, dictated and finalized at location . Impression: Moderate grade articular surface partial tearing involving the posterior portio n of the distal supraspinatus tendon, and anterior to central portions of the d istal infraspinatus tendon. Probable degenerative SLAP tear, as detailed above. Moderate to severe osteoarthritis of the glenohumeral joint. Moderate AC joint degenerative change.
== END 2022-09-29 08:37 | disposition home or self-care (01) ==
PROVIDERS: PCP Internal Medicine; Visit Provider Nurse Practitioner
DX: M19.011 Primary osteoarthritis, right shoulder (principal)
CPT/HCPCS: 73221

== ENCOUNTER 2023-12-13 07:41 | Outpatient (CLI) | payer BC, SELFPAY | END 2023-12-13 07:42 | disposition home or self-care (01) | LOC: ANHAUDASC 07:42 | PROVIDERS: PCP Internal Medicine; Visit Provider Nurse Practitioner | DX: H93.13 Tinnitus, bilateral (principal); H90.3 Sensorineural hearing loss, bilateral | CPT/HCPCS: 92557; 92567 ==

== ENCOUNTER 2023-12-30 09:41 | Outpatient (CLI) | payer BC, SELFPAY ==
--- NOTE | 2023-12-30 10:05 | EST_ITS ---
Patient Info Name: Albert Bradford Age: 63 years : 1960 Gender: Male Ht: 75 in Wt: 250 lbs BSA: 2.48 m2 HR: 68 bpm BP: 135 / 92 mmHg Exam Date: 12/30/2023 10:15 AM Exam Location: [facility] Patient Status: Outpatient Admit Date: 12/30/2023 Staff Ordering Physician: Kathleen Toro NP Attending Provider: Kathleen Toro NP Exercise Technologist: France Worthington [facility] Exercise Physician: Jose L Pinto DO Exam Type: CA stress test treadmill Study Info A treadmill exercise stress test was performed. Summary 1. 1. Negative Evert exercise stress test for ischemic ST changes by ECG criteria. 2. 2. Reduced functional capacity, achieving 8.6 METs of workload. 3. 3. Appropriate HR response to exercise. 4. 4. Appropriate HR recovery at 1 minute post exercise. 5. 5. No imaging with stress testing. 6. 6. Patient informed of the above results. Protocol: Evert Stress ECG Details Stage: REST Duration (min): 1 min : 16 sec Speed (mph): 0.0 Grade (%): 0 HR (bpm): 67 SBP (mmHg): 135 DBP (mmHg): 92 METS: --- Stage: REST Duration (min): 3 min : 42 sec Speed (mph): 0.0 Grade (%): 0 HR (bpm): 76 SBP (mmHg): 135 DBP (mmHg): 92 METS: --- Stage: STAGE 1 Duration (min): 1 min : 0 sec Speed (mph): 1.7 Grade (%): 10 HR (bpm): 108 SBP (mmHg): 135 DBP (mmHg): 92 METS: --- Stage: STAGE 1 Duration (min): 2 min : 0 sec Speed (mph): 1.7 Grade (%): 10 HR (bpm): 113 SBP (mmHg): 135 DBP (mmHg): 92 METS: --- Stage: STAGE 1 Duration (min): 3 min : 0 sec Speed (mph): 1.7 Grade (%): 10 HR (bpm): 120 SBP (mmHg): 183 DBP (mmHg): 95 METS: --- Stage: STAGE 2 Duration (min): 1 min : 0 sec Speed (mph): 2.5 Grade (%): 12 HR (bpm): 129 SBP (mmHg): 183 DBP (mmHg): 95 METS: --- Stage: STAGE 2 Duration (min): 2 min : 0 sec Speed (mph): 2.5 Grade (%): 12 HR (bpm): 141 SBP (mmHg): 184 DBP (mmHg): 94 METS: --- Stage: STAGE 2 Duration (min): 3 min : 0 sec Speed (mph): 2.5 Grade (%): 12 HR (bpm): 147 SBP (mmHg): 184 DBP (mmHg): 94 METS: --- Stage: STAGE 3 Duration (min): 0 min : 50 sec Speed (mph): 3.4 Grade (%): 14 HR (bpm): 159 SBP (mmHg): 196 DBP (mmHg): 93 METS: --- Stage: RECOVERY Duration (min): 0 min : 9 sec Speed (mph): 1.5 Grade (%): 0 HR (bpm): 159 SBP (mmHg): 196 DBP (mmHg): 93 METS: --- Stage: RECOVERY Duration (min): 1 min : 9 sec Speed (mph): 0.0 Grade (%): 0 HR (bpm): 132 SBP (mmHg): 196 DBP (mmHg): 93 METS: --- Stage: RECOVERY Duration (min): 2 min : 9 sec Speed (mph): 0.0 Grade (%): 0 HR (bpm): 121 SBP (mmHg): 196 DBP (mmHg): 93 METS: --- Stage: RECOVERY Duration (min): 3 min : 9 sec Speed (mph): 0.0 Grade (%): 0 HR (bpm): 104 SBP (mmHg): 196 DBP (mmHg): 93 METS: --- Stage: RECOVERY Duration (min): 4 min : 9 sec Speed (mph): 0.0 Grade (%): 0 HR (bpm): 94 SBP (mmHg): 196 DBP (mmHg): 93 METS: --- Stage: RECOVERY Duration (min): 5 min : 9 sec Speed (mph): 0.0 Grade (%): 0 HR (bpm): 96 SBP (mmHg): 142 DBP (mmHg): 88 METS: --- Stage: RECOVERY Duration (min): 5 min : 12 sec Speed (mph): 0.0 Grade (%): 0 HR (bpm): 96 SBP (mmHg): 142 DBP (mmHg): 88 METS: --- Rest HR: 76 bpm Peak HR: 159 bpm Rest Sys BP: 135 mmHg Peak Sys BP: 196 mmHg Max Pred HR: 159 bpm % Max Pred HR: 100 % Target HR: 135 bpm Max RPP: 31,164 bpm*mmHg Jones Score: 1 Termination Reason: Reached target heart rate or workload Cardiac Symptoms: Shortness of breath Max ST Seg Deviation: 1.20 mm Total Time: 6 min : 50 sec Rest Mckay BP: 92 mmHg Peak Mckay BP: 93 mmHg Angina Score: None Total METS: 8.6 Resting ECG Sinus rhythm. Stress ECG No ST changes. Arrhythmias None. Report Signatures
== END 2023-12-30 09:42 | disposition home or self-care (01) ==
PROVIDERS: PCP Internal Medicine; Visit Provider Nurse Practitioner
DX: R07.9 Chest pain, unspecified (principal)
CPT/HCPCS: 93017

== ENCOUNTER 2024-11-18 09:52 | Outpatient (CLI) | payer OTHER, SELFPAY ==
--- NOTE | ~2024-11-18 | XR_ITS ---
XR cervical spine min 6V Indication: Cervicalgia, pain down left shoulder, 1-2 years Comparison: None Findings: No fracture, no subluxation flexion-extension Narrowing of the foramina bilaterally at C2-3 and C3-4. Moderate loss of disc height at C5-6 and C6-7. Soft tissues unremarkable Impression: No acute abnormality. Reviewed, dictated and finalized at location A. Impression: No acute abnormality.
== END 2024-11-18 09:53 | disposition home or self-care (01) ==
PROVIDERS: PCP Nurse Practitioner; Visit Provider Nurse Practitioner
DX: M54.2 Cervicalgia (principal)
CPT/HCPCS: 72052